=== PATIENT | female | born 1985 | race Caucasian/White ===

== ENCOUNTER 2017-11-07 13:00 | Inpatient (IN) | payer OTHER ==
[~2017-11-07] VITALS: Ht 165.1 cm; Wt 64.0 kg
[2017-11-27] MEDS ORDERED: PRENATAL TABLE1 EAC1 PO (07:34)
== END 2017-11-29 13:40 | DRG 775 ==
LOC: OB/GYN 11-27 05:24 → LDR 11-27 05:24 → OB/GYN 11-27 05:47 → LDR 11-27 08:17 → OB/GYN 11-27 20:58 → LDR 11-30 13:00
PROC: 0HQ9XZZ Repair Perineum Skin, External Approach (ICD-10-PCS; principal; 2017-11-27)
PROC: 10E0XZZ Delivery of Products of Conception, External Approach (ICD-10-PCS; 2017-11-27)
PROC: 3E033VJ Introduction of Other Hormone into Peripheral Vein, Percutaneous Approach (ICD-10-PCS; 2017-11-27)
PROC: 4A1HXCZ Monitoring of Products of Conception, Cardiac Rate, External Approach (ICD-10-PCS; 2017-11-27)
DX: O70.0 First degree perineal laceration during delivery (principal); O69.81X0 Labor and delivery complicated by cord around neck, without compression, not applicable or unspecified; Z3A.39 39 weeks gestation of pregnancy; Z37.0 Single live birth

== ENCOUNTER 2021-08-16 10:07 | Outpatient (CLI) | payer OTHER ==
[~2021-08-16 10:07] MED LIST: PRENATAL TABLE1 EAC1 PO
== END 2021-08-16 10:22 | disposition home or self-care (01) ==
LOC: SONOGRAMA 10:07
PROVIDERS: ATTEND Obstetrics & Gynecology
DX: E04.8 Other specified nontoxic goiter (principal); N84.0 Polyp of corpus uteri; N84.1 Polyp of cervix uteri

== ENCOUNTER 2024-12-03 09:33 | Outpatient (CLI) | payer OTHER | END 2024-12-03 09:53 | disposition home or self-care (01) | LOC: MAMO-SONO 09:33 | DX: N60.11 Diffuse cystic mastopathy of right breast (principal); N60.12 Diffuse cystic mastopathy of left breast; N64.0 Fissure and fistula of nipple; N63.0 Unspecified lump in unspecified breast ==